=== PATIENT | male | born 1985 | race Hispanic/Latino ===

== ENCOUNTER 2021-06-16 01:34 | Emergency (ER) | payer OTHER ==
[~2021-06-16] VITALS: Ht 175.3 cm; Wt 99.8 kg
[2021-06-16 01:41] VITALS: BP 130/70
[2021-06-16] MEDS ORDERED: CLIN-141 PO (02:21)
[2021-06-16] MEDS ORDERED: DEXAMETHASONE 4 MG TAB PO ONE (02:30)
[2021-06-16] MEDS ORDERED: CLINDAMYCIN 150 MG CAP PO ONE (02:30)
[2021-06-16] MEDS ORDERED: NAPROXEN 250 MG TAB PO ONE (02:30)
== END 2021-06-16 02:48 | disposition home or self-care (01) ==
LOC: EDH 01:34
DX: H66.93 Otitis media, unspecified, bilateral (principal); J02.9 Acute pharyngitis, unspecified; Z79.1 Long term (current) use of non-steroidal anti-inflammatories (NSAID); Z79.52 Long term (current) use of systemic steroids
CPT/HCPCS: 99284; J8540